=== PATIENT | male | born 1945 | race Caucasian/White ===

== ENCOUNTER → 2016-05-16 | Outpatient (CLI) | payer MEDICARE, OTHER ==
[~2016-05-16] MED LIST: ASP325T PO; BORAGE OIL; CLON0.5T3 PO; CLOP75TA PO; DIAZ-345 PO; FISH400C2 PO; FLAX100011 PO; FOLI0.8T PO; FOLIC ACID; GARLIC 1000MG PO; GLUCOSAMINE PO; IBUP-15 PO; MECL25TA56 PO; METO-272 PO; METO25TA2 PO; MTP50T PO; OMEG1CAP51 PO; RNT150T PO; SCP1.5TD TD; SIMV80TA3 PO; TRAM50TA2 PO; TRIA1TAB2 PO; ZINC50TA49 PO
--- OUTSIDE RECORDS SUMMARY | 2016-05-16 16:03 | XMS REPORT | Continuity of Care Document ---
Author Author [facility] Organization [facility] Address Unknown Phone Unavailable Care Team Providers Care Powder Coater Name Role Phone PCP Unavailable Source Comments Some departments are not documenting in the electronic medical record. If you do not see the information that you expected, contact Release of Information in the Health Information Management department at [phone] for further assistance in locating additional records.[facility] Active Allergies and Adverse Reactions Allergen Noted Date Severity Reactions Comments Codeine 09/12/2011 NAUSEA AND VOMITING Current Medications Prescription Sig. Disp. Refills Start End Date Status Date clopidogrel (PLAVIX) 75 Take 75 mg by mouth Active mg daily. metoprolol (LOPRESSOR) 25 Take 25 mg by mouth Active mg tablet daily. simvastatin (ZOCOR) 40 mg Take 80 mg by mouth at Active tablet bedtime daily. ranitidine(+) (ZANTAC) Take 150 mg by mouth Active 150 mg tablet twice daily. aspirin 325 mg tablet Take 162 mg by mouth Active daily. folic acid 400 mcg tablet Take 400 mcg by mouth Active daily. MULTIVITAMIN PO Take by mouth daily. Active FAMOTIDINE (PEPCID AC PO) Take 2 Tabs by mouth Active daily. calcium combo Take by mouth daily. Active no.2-vitamin D3 (CITRACAL + D SLOW RELEASE) 600 mg calcium- 500 unit TbER magnesium chloride (MAG Take 250 mg by mouth Active DELAY) 64 mg tablet daily. clonazePAM (KLONOPIN) 0.5 Take 1 Tab by mouth 30 Tab 0 12/06/19 Active mg tablet daily. AT BEDTIME 13 diazepam (VALIUM) 10 mg Take 10 mg by mouth at Active tablet bedtime as needed. tamsulosin (FLOMAX) 0.4 Take 0.4 mg by mouth Active mg capsule daily. oxyCODONE SR (OXYCONTIN) Take 20 mg by mouth daily Active 20 mg tablet oxyCODONE (ROXICODONE) 5 Take 5 mg by mouth every Active mg tablet 6 hours as needed gabapentin (NEURONTIN) Take 400 mg by mouth Active 400 mg capsule three times daily. hyoscyamine (LEVSIN/SL) Take 125 mcg by mouth Active 0.125 mg tablet every 4 hours as needed. DULoxetine DR (CYMBALTA) Take 30 mg by mouth at Active 30 mg capsule bedtime daily. zinc sulfate 220 mg (50 Take 220 mg by mouth Active mg elemental zinc) daily. capsule ERGOCALCIFEROL (VITAMIN Take 2,000 mg by mouth Active D2) (VITAMIN D PO) daily. docusate (COLACE) 100 mg Take 100 mg by mouth Active capsule twice daily as needed. polyethylene glycol 3350 Take 17 g by mouth daily. Active (GLYCOLAX; MIRALAX) 17 gram/dose powder milk of magnesia (CONC) Take 10 mL by mouth daily Active 2,400 mg/10 mL oral as needed. suspension other medication Insert or Apply 1 Dose to Active rectal area as directed twice daily as needed. baclofen (LIORESAL) 20 mg Insert or Apply 20 mg to Active tablet rectal area as directed twice daily as needed. other medication Insert or Apply 1 Dose to Active rectal area as directed twice daily as needed. nortriptyline (PAMELOR) TAKE ONE CAPSULE BY MOUTH 30 Cap 0 04/01/20 Active 25 mg capsule AT BEDTIME 14 Active Problems Problem Noted Date Rectal pain, chronic 10/21/2013 Vertigo 09/12/2011 Social History Tobacco Use Types Packs/Day Years Used Date Never Smoker Smokeless Tobacco: Never Used Alcohol Use Drinks/Week oz/Week Comments No Last Filed Vital Signs Vital Sign Reading Time Taken Blood Pressure 106/66 10/21/2013 2:19 PM CDT Pulse 78 10/21/2013 2:19 PM CDT Temperature 35.9 C (96.7 F) 10/21/2013 2:19 PM CDT Respiratory Rate 16 10/21/2013 2:19 PM CDT Height 1.727 m (5' 8") 10/21/2013 2:19 PM CDT Weight 79.516 kg (175 lb 4.8 oz) 10/21/2013 2:19 PM CDT Body Mass Index 26.66 10/21/2013 2:19 PM CDT Oxygen Saturation - - Plan of Care Health Maintenance Due Date Last Done Comments Physical (Comprehensive) 09/25/1952 Exam Pertussis Vaccine 09/25/1955 Tetanus Vaccine 1961 Colorectal Cancer 1994 Screening Shingles Vaccine 2004 Prevnar/Pneumovax (#1) 2009 Influenza Vaccine 12/22/2015 Results from Last 3 Months Not on file
--- NOTE | 2016-05-16 16:16 | Diagnostic Imaging Report ---
Indication: Chest pain PA and lateral chest There some atelectasis at the right lung base. Left lung is clear. There are no pneumothoraces. There may be tiny right-sided pleural effusion. Impression: Right basilar atelectasis and small right pleural effusion. Dictated by: Dictated on workstation # [id number]
== END ==
LOC: RAD 15:59
PROVIDERS: ATTEND Internal Medicine
DX: J90 Pleural effusion, not elsewhere classified (principal); J98.11 Atelectasis
CPT/HCPCS: 71020

== ENCOUNTER → 2016-05-17 | Outpatient (CLI) | payer MEDICARE, OTHER ==
[~2016-05-17] MED LIST changes: +CATHETER FLUSH 10 ML SYR IV PRN; +IOHEXOL 350 MG/ML 100 ML (OMNIPAQUE 350) VIAL IV ONE; +NS 100 ML (IVPB) BAG IV ONE
--- OUTSIDE RECORDS SUMMARY | 2016-05-17 09:30 | XMS REPORT | Continuity of Care Document ---
Author Author [facility] Organization [facility] Address Unknown Phone Unavailable Care Team Providers Care Plumber Cub Name Role Phone PCP Unavailable Source Comments Some departments are not documenting in the electronic medical record. If you do not see the information that you expected, contact Release of Information in the Health Information Management department at [phone] for further assistance in locating additional records.[facility] Active Allergies and Adverse Reactions Allergen Noted [...]
--- NOTE | 2016-05-17 11:47 | Diagnostic Imaging Report ---
PROCEDURE: CT chest with contrast only. TECHNIQUE: Multiple contiguous axial images were obtained through the chest after administration of intravenous contrast. INDICATION: Cough. FINDINGS: There are no prior CT chest examinations available for comparison. The plain film examination of the chest performed on 05/16/2016 indicated right basilar atelectasis and small right pleural effusion. On this exam, there is again evidence of pneumonia/atelectasis and a small effusion involving the right lung base. The effusion measures only 9 mm in maximum depth. Furthermore, there also appear to be small defects in the pulmonary arteries to the right lower lobe. This appearance would be consistent with pulmonary emboli. The right upper lung and left lung are generally clear. There is a very small amount of atelectasis/infiltrate in the left lung base. There are also a few mediastinal and right hilar nodes. The largest of these nodes is in the right infrahilar region and measures 1.2 x 1.8 cm. I suspect that these are reactive nodes related to the pneumonia/atelectasis and fluid involving the right lung base. The heart size is borderline enlarged, and there do appear to be coronary artery calcifications. The aorta is not abnormally dilated, and there is no sign of a dissection. The thyroid gland is unremarkable. The sections through the upper abdomen fail to show any sign of an acute abnormality. The liver is of lower density than usually seen. This appearance does suggest fatty metamorphosis. The bone windows show no sign of a fracture or of a destructive lesion. IMPRESSION: 1. As suggested on the plain film exam, there is right lower lobe pneumonia/atelectasis and a small right pleural effusion. Furthermore, there do appear to be pulmonary emboli in the branches of the pulmonary artery to the right lung base. 2. There is also mild left lower lobe atelectasis/infiltrate. There is no acute cardiopulmonary abnormality noted otherwise. 3. The right hilar and mediastinal adenopathy is nonspecific but most likely reactive in nature. 4. There is borderline cardiomegaly and coronary artery disease. 5. These results were called to Dr. Seema Collins's office at the time of this dictation. CRITICAL FINDING Dictated by: Dictated on workstation # [id number]
== END ==
LOC: RAD 09:27
PROVIDERS: ATTEND Internal Medicine
DX: I25.10 Atherosclerotic heart disease of native coronary artery without angina pectoris (principal); J90 Pleural effusion, not elsewhere classified; I51.7 Cardiomegaly
CPT/HCPCS: 71260

== ENCOUNTER → 2016-08-13 | Outpatient (CLI) | payer MEDICARE, OTHER ==
[2016-08-13 10:46] LABS: BLOOD UREA NITROGEN 16 MG/DL (7-18); BUN/CREATININE RATIO 18; CREATININE SERUM 0.88 MG/DL (0.60-1.30); GFR ESTIMATED > 60
--- NOTE | 2016-08-13 11:45 | Diagnostic Imaging Report ---
PROCEDURE: CT chest with contrast only. TECHNIQUE: Multiple contiguous axial images were obtained through the chest after administration of intravenous contrast. INDICATION: Pneumonia. Pleural effusion. CONTRAST: 75 mL of Omnipaque 350 was administered intravenously. COMPARISON: 05/17/2016. FINDINGS: There is interval near complete resolution of right lower lobe consolidation with remaining minimal atelectasis or scarring. There is also resolution of the previously seen effusion. There is no remaining suspicious nodule or mass. The left lung demonstrates no significant consolidation or mass. The mediastinum demonstrates no mass or significantly enlarged lymph node. There are some calcified granulomas in the mediastinum without significant lymphadenopathy in the mediastinum, ashwin, or axilla seen otherwise. The heart size is normal. The osseous structures demonstrate mild degenerative changes and bridging syndesmophytes. IMPRESSION: Near-complete resolution of the right basilar consolidation and effusion with minimal remaining atelectasis or scarring. Dictated by: Dictated on workstation # [id number]
== END ==
LOC: RAD 10:04
PROVIDERS: ATTEND Internal Medicine Critical Care Medicine
DX: J18.9 Pneumonia, unspecified organism (principal); J90 Pleural effusion, not elsewhere classified; I26.99 Other pulmonary embolism without acute cor pulmonale
CPT/HCPCS: 36415; 71260; 82565; 84520

== ENCOUNTER → 2017-09-30 | Outpatient (CLI) | payer MEDICARE, OTHER ==
[~2017-09-30] MED LIST changes: -CATHETER FLUSH 10 ML SYR IV PRN; -IOHEXOL 350 MG/ML 100 ML (OMNIPAQUE 350) VIAL IV ONE; -NS 100 ML (IVPB) BAG IV ONE
--- NOTE | 2017-09-30 12:40 | Diagnostic Imaging Report ---
INDICATION: Pneumonia. COMPARISON: 05/16/2016. FINDINGS: There has been resolution of the right pleural fluid. Some mild nodular opacity in the right lower lobe is present although less dense than on the prior exam. I am uncertain if there has been a recurrence of pneumonia or if the changes reflect scarring from a previous inflammatory episode. The left lung is clear. The upper lobe is clear. IMPRESSION: There is some mild nodular prominence of the interstitial markings in the right lung base which may be recurrence of infiltrate or scarring. Overall, the findings in the right base show an improvement from the study of April 2016 and include complete resolution of a previous pleural effusion. Dictated by: Dictated on workstation # [id number]
== END ==
LOC: RAD 12:09
PROVIDERS: ATTEND Nurse Practitioner Family
DX: J18.9 Pneumonia, unspecified organism (principal)
CPT/HCPCS: 71046

== ENCOUNTER → 2018-02-27 | Outpatient (CLI) | payer MEDICARE, OTHER ==
--- NOTE | 2018-02-27 14:24 | Diagnostic Imaging Report ---
PROCEDURE: MR imaging cervical spine without contrast. TECHNIQUE: Multiplanar, multisequence MR imaging of the cervical spine was performed without contrast. INDICATION: Chronic neck pain. COMPARISON: No prior studies are available for comparison. FINDINGS: Curvature of the cervical spine is normal. There is minimal retrolisthesis of C5 on C6 and C6 on C7. The vertebral body marrow signal is within normal limits with exception of reactive changes in the marrow from degenerative disc disease within the C5 and C6 vertebral bodies. There is multilevel degenerative disc disease, greatest at C5-6 and C6-7 levels, with disc space narrowing and desiccation and marginal osteophyte formation. Cervical cord shows normal homogeneous signal intensity and normal morphology. C2-3: No central canal or neural foraminal stenosis is identified. C3-4: No significant central canal narrowing is identified. Uncovertebral joint degenerative changes does result in mild bilateral neural foraminal narrowing. C4-5: Central canal is patent. There is moderate left neural foraminal narrowing. Right neural foramen is patent. C5-6: Broad-based disc/osteophyte complex indents the ventral thecal sac. There is mild to moderate central canal narrowing. There is significant bilateral neural foraminal narrowing. C6-7: Broad-based disc/osteophyte complex and uncovertebral joint degenerative change results in moderate central canal narrowing. There is significant bilateral neural foraminal stenosis. C7-T1: No central canal or neural foraminal stenosis is identified. IMPRESSION: Cervical spondylosis, greatest at C5-6 and C6-7 levels with central canal and neural foraminal narrowing, as described. Dictated by: Dictated on workstation # [id number]
== END ==
LOC: RAD 13:13
PROVIDERS: ATTEND Pain Medicine Interventional Pain Medicine
DX: M47.22 Other spondylosis with radiculopathy, cervical region (principal); M48.02 Spinal stenosis, cervical region; M99.71 Connective tissue and disc stenosis of intervertebral foramina of cervical region
CPT/HCPCS: 72141

== ENCOUNTER → 2018-03-07 | Outpatient (CLI) | payer MEDICARE, OTHER ==
--- NOTE | 2018-03-07 10:23 | Diagnostic Imaging Report ---
INDICATION: Pneumonia. TIME OF EXAM: 10:09 AM COMPARISON: Correlation is made with prior study from 09/30/2017. FINDINGS: The heart size is stable. There is chronic mild elevation of right hemidiaphragm. No significant infiltrates are seen apart from questionable minimal patchy density in the left base near the costophrenic angle. The remainder of the lung calderón are clear. The pulmonary vascularity is normal. No effusion is identified. No pneumothorax is detected. IMPRESSION: Findings suggestive of some mild patchy left basilar infiltrate. The study is otherwise unremarkable. Dictated by: Dictated on workstation # [id number]
== END ==
LOC: RAD 09:34
PROVIDERS: ATTEND Nurse Practitioner Family
DX: J18.9 Pneumonia, unspecified organism (principal)
CPT/HCPCS: 71046

== ENCOUNTER → 2018-07-18 | Outpatient (CLI) | payer MEDICARE, OTHER ==
--- NOTE | 2018-07-18 12:03 | Diagnostic Imaging Report ---
PROCEDURE: US abdomen complete. TECHNIQUE: Multiple real-time grayscale images were obtained over the abdomen in various projections. INDICATION: Abdominal pain. FINDINGS: The liver is normal in size at 14.4 cm. No discrete liver mass is identified. Left lobe is poorly visualized due to overlying bowel gas. No definite gallstones are seen. No wall thickening or biliary ductal dilatation is seen. Pancreas was obscured by bowel gas. Spleen is normal in size at 10.4 cm. Aorta and IVC were obscured by bowel gas. Right kidney measures 10.1 x 4.9 x 4.6 cm and the left kidney measures 11.9 x 5.6 x 5.0 cm. There are bilateral renal cysts present. Largest cyst on the right is in the upper pole measuring 3.6 x 3.1 cm. Cyst in the upper pole of the left kidney is 4.2 cm x 3.6 cm. No calculi or hydronephrosis is identified. There is no ascites. IMPRESSION: 1. Somewhat Limited study due to overlying bowel gas. No definite cholelithiasis or evidence of acute cholecystitis is seen. 2. Bilateral renal cysts. Dictated by: Dictated on workstation # [id number]
== END ==
LOC: RAD 10:11
PROVIDERS: ATTEND Internal Medicine Gastroenterology
DX: N28.1 Cyst of kidney, acquired (principal)
CPT/HCPCS: 76700

== ENCOUNTER 2018-08-06 14:09 | Outpatient (CLI) | payer MEDICARE, OTHER | END 2018-08-06 15:30 | disposition home or self-care (01) | LOC: SLEEP 14:09 | PROVIDERS: ATTEND Otolaryngology Otolaryngology/Facial Plastic Surgery | DX: G47.33 Obstructive sleep apnea (adult) (pediatric) (principal) ==

== ENCOUNTER → 2018-10-31 | Outpatient (RCR) | payer MEDICARE, OTHER | END | disposition home or self-care (01) | LOC: CR3 10-01 15:31 | PROVIDERS: ATTEND Family Medicine | DX: Z29.8 Encounter for other specified prophylactic measures (principal) ==

== ENCOUNTER → 2018-12-03 | Outpatient (RCR) | payer MEDICARE, OTHER | END | disposition home or self-care (01) | LOC: CR3 11-03 16:44 | PROVIDERS: ATTEND Family Medicine | DX: Z29.8 Encounter for other specified prophylactic measures (principal) ==

== ENCOUNTER 2019-01-01 06:00 | Outpatient (RCR) | payer MEDICARE, OTHER | END 2019-01-04 | disposition home or self-care (01) | LOC: CR3 06:00 | PROVIDERS: ATTEND Family Medicine | DX: Z29.8 Encounter for other specified prophylactic measures (principal) ==

== ENCOUNTER → 2019-01-29 | Outpatient (CLI) | payer MEDICARE, OTHER ==
--- NOTE | 2019-01-29 14:59 | Diagnostic Imaging Report ---
PROCEDURE: US carotid duplex, bilateral. TECHNIQUE: Multiple real-time grayscale images were obtained over the carotid arteries in various projections, bilaterally. Additional spectral analysis and color Doppler duplex images were also obtained. INDICATION: Carotid stenosis. COMPARISON: There are no prior studies available for comparison. FINDINGS: There is mild hard and soft plaque formation involving both carotid bifurcations. The flow velocities failed to show any sign of a hemodynamically significant stenosis of the common or internal carotid arteries. Both vertebral arteries were identified and there was antegrade flow bilaterally. IMPRESSION: There is atherosclerotic disease involving both carotid bifurcations, but there is no evidence for hemodynamically significant stenosis of the common or internal carotid arteries. Parameters based on the consensus panel [place] and Doppler ultrasound criteria published February 2003, Radiology, Volume 229. DOPPLER (peak systolic velocity M/S Right Left CCA .87 1.00 ICA Proximal .77 .75 ICA Mid .96 1.08 ICA Distal 1.19 1.00 RATIO 1.4 1.1 ECA 1.27 1.08 VERT .15 .57 Dictated by: Dictated on workstation # [id number]
== END ==
LOC: RAD 13:34
PROVIDERS: ATTEND Nurse Practitioner Family
DX: I65.23 Occlusion and stenosis of bilateral carotid arteries (principal)
CPT/HCPCS: 93880

== ENCOUNTER → 2019-02-06 | Outpatient (RCR) | payer MEDICARE, OTHER | END | disposition home or self-care (01) | LOC: CR3 01-07 15:00 | PROVIDERS: ATTEND Family Medicine | DX: Z29.8 Encounter for other specified prophylactic measures (principal) ==

== ENCOUNTER → 2019-03-11 | Outpatient (RCR) | payer MEDICARE, OTHER | END | disposition home or self-care (01) | LOC: CR3 02-09 16:00 | PROVIDERS: ATTEND Family Medicine | DX: Z29.8 Encounter for other specified prophylactic measures (principal) ==

== ENCOUNTER 2019-04-08 14:55 | Outpatient (RCR) | payer MEDICARE, OTHER ==
[2019-04-11] MEDS ORDERED: PROC5TAB52 PO (13:39)
[2019-04-11] MEDS ORDERED: ONDA4TAB11 PO (13:39)
[2019-04-11] MEDS ORDERED: SUCR1TAB36 PO (13:39)
== END 2019-04-11 | disposition home or self-care (01) ==
LOC: CR3 14:55
PROVIDERS: ATTEND Family Medicine
DX: Z29.8 Encounter for other specified prophylactic measures (principal)

== ENCOUNTER 2019-04-11 12:43 | Emergency (ER) | payer MEDICARE, OTHER ==
[~2019-04-11] VITALS: Ht 175.3 cm; Wt 81.8 kg
--- NOTE | 2019-04-11 12:56 | ED Abdominal Pain ---
General Chief Complaint: Abdominal/GI Problems Stated Complaint: ABD PAIN Source of Information: Patient Exam Limitations: No Limitations History of Present Illness Date Seen by Provider: Apr 11, 2019 Time Seen by Provider: 12:54 Initial Comments To ER by with nausea vomiting diarrhea. He's had a weight loss of about 15 pounds over the past 2 weeks. He's had some epigastric pain, burning sensation anytime he eats or drinks. History of stomach ulcer and believes this is a recurrence of the stomach ulcer despite Protonix use. 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 states he is "always had a weak stomach". Timing/Duration: Constant, Getting Worse Severity/Quality: Moderate Location: Epigastric Radiation: No Radiation Modifying Factors: Improves With Vomiting Associated Symptoms: Nausea/Vomiting Allergies and Home Medications Allergies Coded Allergies: tramadol (Verified Allergy, Mild, 08/07/11) codeine (Unverified Allergy, Unknown, 08/08/11) Home Medications Aspirin 325 Mg Tab, 325 MG PO HS, (Reported) Clonazepam 0.5 Mg Tablet, 0.25-0.5 MG PO HS, (Reported) TAKES 1/2 TO 1 (0.5MG) TABLET AT BEDTIME Clopidogrel Bisulfate 75 Mg Tablet, 75 MG PO HS, (Reported) Fish Oil/Borage/Flax/Om3,6,9#1 400 Mg Capsule, 1 CAP PO BID, (Reported) Folic Acid 0.8 Mg Tablet, 1,600 MCG PO HS, (Reported) Ibuprofen 200 Mg Tablet, 800 MG PO HS, (Reported) TAKES 2 (200MG) TABLETS AT BEDTIME Meclizine Hcl 25 Mg Tablet, 25 MG PO TID PRN, (Reported) NEEDED FOR VERTIGO Metoprolol Tartrate 50 Mg Tablet, 25 MG PO BID, (Reported) TAKES 1/2 (50MG) TABLET TWICE DAILY Ondansetron 4 Mg Tab.rapdis, 4 MG PO Q6H PRN for NAUSEA/VOMITING-1ST LINE Prescribed by: LEE ADAMS on 04/11/19 1339 Prochlorperazine Maleate 5 Mg Tablet, 5 MG PO TID PRN for NAUSEA/VOMITING Prescribed by: LEE ADAMS on 04/11/19 1339 Ranitidine Hcl 150 Mg Tablet, 150 MG PO HS, (Reported) Simvastatin 80 Mg Tablet, 80 MG PO HS, (Reported) Sucralfate 1 Gm Tablet, 1 GM PO QID Prescribed by: LEE ADAMS on 04/11/19 1339 Tramadol Hcl 50 Mg Tablet, 25 MG PO HS, (Reported) TAKES 1/2 (50MG) TABLET EVERY NIGHT Zinc Amino Acid Chelate 50 Mg Tablet, 50 MG PO HS, (Reported) [Garlic 1000MG] , 1,000 MG PO HS, (Reported) [Glucosamine] , 2,000 MG PO BID, (Reported) Patient Home Medication List Home Medication List Reviewed: Yes Review of Systems Review of Systems Constitutional: see HPI EENTM: No Symptoms Reported Respiratory: No Symptoms Reported Cardiovascular: No Symptoms Reported Gastrointestinal: See HPI, Abdominal Pain, Diarrhea, Nausea, Vomiting Genitourinary: No Symptoms Reported Musculoskeletal: no symptoms reported Skin: no symptoms reported Psychiatric/Neurological: No Symptoms Reported Endocrine: No Symptoms Reported Hematologic/Lymphatic: No Symptoms Reported Past Mbaglhf-Qrtdtt-Feklip Hx Patient Social History Recent Foreign Travel: No Contact w/Someone Who Travel: No Immunizations Up To Date Date of Influenza Vaccine: Jan 20, 2011 Past Medical History Reproductive Disorders: No Physical Exam Vital Signs Vital Signs - First Documented 04/11/19 12:46 Temp 36.9 Pulse 67 Resp 17 B/P (MAP) 141/99 (113) Pulse Ox 98 O2 Delivery Room Air Capillary Refill : Height/Weight/BMI Height: '" Weight: 165lbs. oz. kg; BMI Method: General Appearance: WD/WN, no apparent distress HEENT: PERRL/EOMI, normal ENT inspection Neck: non-tender, full range of motion Respiratory: no respiratory distress, no accessory muscle use Gastrointestinal: normal bowel sounds, soft, tenderness (epigastric) Extremities: normal range of motion, non-tender Neurologic/Psychiatric: alert, normal mood/affect, oriented x 3 Skin: normal color, warm/dry Progress/Results/Core Measures Results/Orders Lab Results Laboratory Tests Test 04/11/19 12:54 Range/Units White Blood Count 9.5 4.3-11.0 10^3/uL Red Blood Count 5.24 4.35-5.85 10^6/uL Hemoglobin 16.4 13.3-17.7 G/DL Hematocrit 48 40-54 % Mean Corpuscular Volume 92 80-99 FL Mean Corpuscular Hemoglobin 31 25-34 PG Mean Corpuscular Hemoglobin Concent 34 32-36 G/DL Red Cell Distribution Width 13.2 10.0-14.5 % Platelet Count 255 130-400 10^3/uL Mean Platelet Volume 10.6 H 7.4-10.4 FL Neutrophils (%) (Auto) 76 H 42-75 % Lymphocytes (%) (Auto) 16 12-44 % Monocytes (%) (Auto) 8 0-12 % Eosinophils (%) (Auto) 0 0-10 % Basophils (%) (Auto) 0 0-10 % Neutrophils # (Auto) 7.2 1.8-7.8 X 10^3 Lymphocytes # (Auto) 1.5 1.0-4.0 X 10^3 Monocytes # (Auto) 0.8 0.0-1.0 X 10^3 Eosinophils # (Auto) 0.0 0.0-0.3 10^3/uL Basophils # (Auto) 0.0 0.0-0.1 10^3/uL Sodium Level 139 135-145 MMOL/L Potassium Level 4.4 3.6-5.0 MMOL/L Chloride Level 104 98-107 MMOL/L Carbon Dioxide Level 22 21-32 MMOL/L Anion Gap 13 5-14 MMOL/L Blood Urea Nitrogen 15 7-18 MG/DL Creatinine 1.17 0.60-1.30 MG/DL Estimat Glomerular Filtration Rate > 60 BUN/Creatinine Ratio 13 Glucose Level 117 H 70-105 MG/DL Calcium Level 9.8 8.5-10.1 MG/DL Corrected Calcium 8.5-10.1 MG/DL Total Bilirubin 0.5 0.1-1.0 MG/DL Aspartate Amino Transf (AST/SGOT) 30 5-34 U/L Alanine Aminotransferase (ALT/SGPT) 24 0-55 U/L Alkaline Phosphatase 79 40-136 U/L Total Protein 8.1 6.4-8.2 GM/DL Albumin 4.7 H 3.2-4.5 GM/DL Lipase 9 8-78 U/L My Orders Orders - LEE ADAMS FUSING MACHINE FEEDER Cbc With Automated Diff (04/11/19 12:50) Comprehensive Metabolic Panel (04/11/19 12:50) Lipase (04/11/19 12:50) Ua Culture If Indicated (04/11/19 12:50) Ed Iv/Invasive Line Start (04/11/19 12:50) Ct Abdomen/Pelvis Wo (04/11/19 12:50) Antacid Suspension (Mylanta Suspension (04/11/19 13:00) Lidocaine 2% Viscous 15 Ml (Xylocaine Vi (04/11/19 13:00) Ondansetron Injection (Zofran Injectio (04/11/19 13:00) Lactated Ringers (Lr 1000 Ml Iv Solution (04/11/19 13:00) Fentanyl Injection (Sublimaze Injection (04/11/19 13:30) Prochlorperazine Injection (Compazine In (04/11/19 13:45) Medications Given in ED Current Medications Medications Dose Ordered Sig/Eliecer Route Start Time Stop Time Status Last Admin Dose Admin Al Hydrox/Mg Hydrox/Simethicone 30 ml ONCE ONCE PO 04/11/19 13:00 04/11/19 13:01 DC 04/11/19 14:06 30 ML Fentanyl Citrate 50 mcg ONCE ONCE IVP 04/11/19 13:30 04/11/19 13:31 DC 04/11/19 13:38 50 MCG Lidocaine HCl 10 ml ONCE ONCE PO 04/11/19 13:00 04/11/19 13:01 DC 04/11/19 14:06 10 ML Ondansetron HCl 8 mg ONCE ONCE IVP 04/11/19 13:00 04/11/19 13:01 DC 04/11/19 12:56 8 MG Prochlorperazine Edisylate 5 mg ONCE ONCE IV 04/11/19 13:45 04/11/19 13:46 DC 04/11/19 13:46 5 MG Vital Signs/I&O 04/11/19 12:46 Temp 36.9 Pulse 67 Resp 17 B/P (MAP) 141/99 (113) Pulse Ox 98 O2 Delivery Room Air Departure Impression Primary Impression: Nausea, vomiting and diarrhea Additional Impression: Epigastric abdominal pain Disposition: 01 HOME, SELF-CARE Condition: Improved Departure-Patient Inst. Decision time for Depature: 13:37 Referrals: RONALDO SRIVASTAVA MD (PCP/Family) Primary Care Physician LORENA LÓPEZ BRETT D DO KIDO, TAKAAKI MD Patient Instructions: Nausea and Vomiting, Adult (DC) Add. Discharge Instructions: 1. Follow-up with Dr. Srivastava, she may refer you to a surgeon. Alternatively you may call a surgeon directly such as Dr. Ken López or Dr. Floyd to discuss EGD to evaluate for stomach ulcers. In the meantime medication as directed. All discharge instructions reviewed with patient and/or family. Voiced understanding. Scripts Ondansetron (Ondansetron Odt) 4 Mg Tab.rapdis 4 MG PO Q6H PRN for NAUSEA/VOMITING-1ST LINE, #10 TAB Prov: LEE ADAMS APRN 04/11/19 Prochlorperazine Maleate (Compazine) 5 Mg Tablet 5 MG PO TID PRN for NAUSEA/VOMITING, #10 TAB Prov: LEE ADAMS APRN 04/11/19 Sucralfate (Carafate) 1 Gm Tablet 1 GM PO QID, #40 TAB Prov: LEE ADAMS APRN 04/11/19 Copy Copies To 1: RONALDO SRIVASTAVA MD, PETER J APRN Apr 11, 2019 12:56
[2019-04-11] MEDS ORDERED: ANTACID SUSP 30 ML UDC (MYLANTA) PO ONE (13:00)
[2019-04-11] MEDS ORDERED: LIDOCAINE 2% VISCOUS 15 ML UDC PO ONE (13:00)
[2019-04-11] MEDS ORDERED: ONDANSETRON 4 MG/2 ML (SDV) Z0FRAN IVP ONE (13:00)
[2019-04-11] MEDS ORDERED: LACTATED RINGERS 1,000 ML IV SCH (13:00)
[2019-04-11 13:03] LABS: BASOPHILS % (AUTO) 0 % (0-10); EOSINOPHILS % (AUTO) 0 % (0-10); HEMATOCRIT 48 % (40-54); HEMOGLOBIN 16.4 G/DL (13.3-17.7); LYMPHOCYTES # (AUTO) 1.5 X 10^3 (1.0-4.0); LYMPHOCYTES % (AUTO) 16 % (12-44); MEAN CORPUSCULAR HEMOGLOBIN 31 PG (25-34); MEAN CORPUSCULAR HGB CONC 34 G/DL (32-36); MEAN CORPUSCULAR VOLUME 92 FL (80-99); MEAN PLATELET VOLUME 10.6 FL (7.4-10.4); MONOCYTES # (AUTO) 0.8 X 10^3 (0.0-1.0); MONOCYTES % (AUTO) 8 % (0-12); NEUTROPHILS # (AUTO) 7.2 X 10^3 (1.8-7.8); NEUTROPHILS % (AUTO) 76 % (42-75); PLATELET COUNT 255 10^3/uL (130-400); RED CELL DISTRIBUTION WIDTH 13.2 % (10.0-14.5); WHITE BLOOD COUNT 9.5 10^3/uL (4.3-11.0)
[2019-04-11 13:22] LABS: ALANINE AMINOTRANSFERASE 24 U/L (0-55); ALBUMIN 4.7 GM/DL (3.2-4.5); ALKALINE PHOSPHATASE 79 U/L (40-136); BILIRUBIN,TOTAL 0.5 MG/DL (0.1-1.0); BUN/CREATININE RATIO 13; CALCIUM 9.8 MG/DL (8.5-10.1); CARBON DIOXIDE 22 MMOL/L (21-32); CHLORIDE 104 MMOL/L (98-107); CREATININE SERUM 1.17 MG/DL (0.60-1.30); GFR ESTIMATED > 60; GLUCOSE 117 MG/DL (70-105); LIPASE 9 U/L (8-78); POTASSIUM 4.4 MMOL/L (3.6-5.0); SODIUM 139 MMOL/L (135-145); TOTAL PROTEIN 8.1 GM/DL (6.4-8.2)
[2019-04-11] MEDS ORDERED: fentaNYL INJECTION 100 MCG/2 ML AMP IVP ONE (13:30)
--- NOTE | 2019-04-11 13:34 | Diagnostic Imaging Report ---
EXAMINATION: CT Abdomen Pelvis without contrast. TECHNIQUE: Multiple contiguous axial images were obtained through the abdomen and pelvis without the use of intravenous contrast. All CT scans use one or more of the following dose optimizing techniques: automated exposure control, MA and/or KvP adjustment based on a patient size and exam type, or iterative reconstruction. HISTORY: Abdominal pain. COMPARISON: 02/13/2012 FINDINGS: Limited views of the lower thorax show moderate coronary artery calcifications. The liver is normal without focal lesion. There is no biliary ductal dilation. Gallbladder is normal. Pancreas is normal. Spleen is normal. Adrenal glands are normal. There are multiple cysts in the kidneys. No suspicious renal lesions. No renal or ureteral calculi. There is no hydronephrosis. Urinary bladder is normal. There are no dilated loops of large or small bowel. No obstruction or inflammation. No free fluid or air. No abdominal or pelvic lymphadenopathy. Aorta is normal in caliber without aneurysm. There are no suspicious osseous lesions. There has been instrumented fusion of the lumbar spine. IMPRESSION: 1. No acute abnormality in the abdomen or pelvis. Dictated by: Dictated on workstation # [id number]
[2019-04-11] MEDS ORDERED: ONDA4TAB11 PO (13:39)
[2019-04-11] MEDS ORDERED: PROC5TAB52 PO (13:39)
[2019-04-11] MEDS ORDERED: SUCR1TAB36 PO (13:39)
[2019-04-11] MEDS ORDERED: PROCHLORPERAZINE 10 MG/2ML INJ (COMPAZINE) IV ONE (13:45)
[2019-04-11 14:28] VITALS: BP 102/65
== END 2019-04-11 14:28 | disposition home or self-care (01) ==
LOC: EDUNIT# 12:43 → ER 12:44
DX: R19.7 Diarrhea, unspecified (principal); R11.2 Nausea with vomiting, unspecified; R10.13 Epigastric pain; Z88.5 Allergy status to narcotic agent; Z79.82 Long term (current) use of aspirin; Z79.02 Long term (current) use of antithrombotics/antiplatelets
CPT/HCPCS: 36415; 74176; 80053; 83690; 85025; 96361; 96374; 96375

== ENCOUNTER 2019-05-29 16:44 | Outpatient (RCR) | payer MEDICARE, OTHER ==
[~2019-05-29 16:44] MED LIST changes: +ONDA4TAB11 PO; +PROC5TAB52 PO; +SUCR1TAB36 PO
== END 2019-05-31 | disposition home or self-care (01) ==
LOC: CR3 16:44
PROVIDERS: ATTEND Family Medicine
DX: Z29.8 Encounter for other specified prophylactic measures (principal)

== ENCOUNTER → 2019-07-01 | Outpatient (RCR) | payer MEDICARE, OTHER | END | disposition home or self-care (01) | LOC: CR3 06-01 14:00 | PROVIDERS: ATTEND Family Medicine | DX: Z29.8 Encounter for other specified prophylactic measures (principal) ==

== ENCOUNTER 2019-07-03 17:00 | Outpatient (RCR) | payer MEDICARE, OTHER | END 2019-08-02 | disposition home or self-care (01) | LOC: CR3 17:00 | PROVIDERS: ATTEND Family Medicine | DX: Z29.8 Encounter for other specified prophylactic measures (principal) ==

== ENCOUNTER → 2019-08-06 | Outpatient (CLI) | payer MEDICARE, OTHER | LOC: PREOP 09:01 | PROVIDERS: ATTEND Surgery | DX: Z01.818 Encounter for other preprocedural examination (principal) ==

== ENCOUNTER → 2019-11-12 | Outpatient (CLI) | payer MEDICARE, OTHER ==
[~2019-11-12] MED LIST changes: +ALPR0.5T7 PO; +ASPI-983 PO; +ATEN25TA PO; +ATOR80TA76 PO; +CALC-870 PO; +CLOP75TA69 PO; +DOCU250C18 PO; +DOXY100T2 PO; +FOLI0.4T2 PO; +GABA-490 PO; +LISI-556 PO; +MAGN500C15 PO; +NITR0.4T42 SL; +ONDA-105 PO; +OXYC20TA3 PO; +PANT40TA2 PO; +PANT40TA3 PO; +POLY17PO6 PO; +SIMV80TA21 PO; +SUCR1TAB PO; +TICA90TA PO; +TMSL.4C PO; +VENL75CA93 PO
--- NOTE | 2019-11-12 17:51 | Diagnostic Imaging Report ---
EXAMINATION: Cervical spine at 05:01 p.m. INDICATION: Neck pain. FINDINGS: AP, lateral, and odontoid views were obtained. The lateral view shows degenerative disc and bony disease at C6-C7 and to a lesser extent at C5-C6. These degenerative changes are similar to the MRI cervical spine exam of 02/27/2018. That study revealed central canal and neuroforaminal narrowing at the C5-C6 and C6-C7 levels. The other intervertebral disc spaces are fairly well maintained. There is no fracture or acute bony abnormality evident. There is no sign of retropharyngeal edema. The lung apices are clear. IMPRESSION: 1. There is no evidence for an acute bony abnormality. 2. There is degenerative disc and bony disease at C5-C6 and C6-C7. These findings are similar to the prior MRI exam. 3. If there is clinical concern that the degenerative disc and bony disease at the C5-C6 and C6-C7 levels has progressed since the prior study, then a repeat MRI exam would be recommended. Dictated by: Dictated on workstation # [id number]
--- NOTE | 2019-11-12 18:38 | Diagnostic Imaging Report ---
EXAM: Thoracic spine at 5:09 PM INDICATION: Back pain. 4 views were obtained. The lateral view shows degenerative disc and bony disease throughout the thoracic spine. This appearance is similar to the prior chest exam of 03/07/2018. There is no fracture, dislocation or acute bony abnormality evident. There is no sign of a paraspinal mass. IMPRESSION: 1. There is degenerative disc and bony disease throughout the thoracic spine but there is no evidence of acute bony abnormality. 2. If clinical concern regarding an underlying abnormality persists, MRI would be recommended for further evaluation. Dictated by: Dictated on workstation # [id number]
--- NOTE | 2019-11-12 18:47 | Diagnostic Imaging Report ---
EXAM: Lumbar spine INDICATION: Back pain 3 views are obtained. COMPARISON: There are no prior lumbar spine examinations available for comparison. The lateral view shows there are postsurgical changes consistent with a posterior fusion of L3, L4 and L5. There are bilateral pedicle screws in place at these levels and an interconnecting alex at the L3 level. There has also been a broad laminectomy. There is narrowing of the disc spaces at all 3 of these levels, particularly L4-L5 and L5-S1. There is also severe narrowing of the disc space with sclerosis of the opposing endplates of L2 and L3. There is only mild narrowing of the disc space at L1-L2. There is no fracture or acute bony abnormality noted. There is no sign of a paraspinal mass. There is mild symmetrical sclerosis of the sacroiliac joint. IMPRESSION: 1. There is no evidence for an acute bony abnormality. 2. There are postsurgical and degenerative changes at L3-L4 and L4-L5. There is also severe degenerative disc and bony disease at the L2-L3 level. 3. If clinical concern regarding an underlying abnormality persists, MRI would be recommended for further study. Dictated by: Dictated on workstation # [id number]
== END ==
LOC: RAD 16:39
PROVIDERS: ATTEND Nurse Practitioner Family
DX: M51.36 Other intervertebral disc degeneration, lumbar region (principal); M47.816 Spondylosis without myelopathy or radiculopathy, lumbar region; M51.34 Other intervertebral disc degeneration, thoracic region; M50.322 Other cervical disc degeneration at C5-C6 level; M89.9 Disorder of bone, unspecified; Z98.1 Arthrodesis status
CPT/HCPCS: 72040; 72072; 72100

== ENCOUNTER 2019-12-23 13:00 | Outpatient (RCR) | payer MEDICARE, OTHER ==
[~2019-12-23 13:00] MED LIST changes: +ASPI-1238 PO; -ASPI-983 PO
== END 2019-12-29 | disposition home or self-care (01) ==
PROVIDERS: ATTEND Nurse Practitioner Family
DX: M54.42 Lumbago with sciatica, left side (principal)

== ENCOUNTER → 2019-12-31 | Outpatient (CLI) | payer MEDICARE, OTHER ==
--- NOTE | 2019-12-31 16:45 | Diagnostic Imaging Report ---
INDICATION: Difficulty breathing. COMPARISON: 08/22/2019 FINDINGS: Frontal and lateral radiographic views of the chest were obtained and show normal cardiac silhouette and pulmonary vasculature. The lungs show somewhat shallow inspiratory volumes, but there is no evidence of focal consolidation, large effusion, nor pneumothorax. There is bilobed opacity within the lateral left lung base. Central lucencies are noted. Area in question measures 2.8 x 1.1 cm. Osseous structures show no acute abnormalities. IMPRESSION: 1. No evidence of failure or focal infiltrate. 2. Bilobed opacity with central lucencies in the lateral left lung base. Given the well-circumscribed nature of this finding, this could be artifact related to something external to the patient. Repeating the chest radiograph versus further characterization with CT chest is recommended for further evaluation. Dictated by: Dictated on workstation # [id number]
== END ==
LOC: RAD 15:54
PROVIDERS: ATTEND Nurse Practitioner Family
DX: R06.02 Shortness of breath (principal); R91.8 Other nonspecific abnormal finding of lung field
CPT/HCPCS: 71046

== ENCOUNTER → 2020-01-25 | Outpatient (CLI) | payer MEDICARE, OTHER ==
[~2020-01-25] MED LIST changes: -PANT40TA3 PO; +PANT40TA52 PO
--- NOTE | 2020-01-25 16:48 | Diagnostic Imaging Report ---
INDICATION: Cough. Comparison made with prior examination 12/31/2019. FINDINGS: The heart size is normal. There is some elevation of the right hemidiaphragm. There is no pleural effusion or pneumothorax. Mediastinum is unremarkable. IMPRESSION: No acute cardiopulmonary abnormality. Dictated by: Dictated on workstation # [id number]
== END ==
LOC: RAD 15:52
PROVIDERS: ATTEND Nurse Practitioner Family
DX: R05 Cough (principal); Z20.828 Contact with and (suspected) exposure to other viral communicable diseases
CPT/HCPCS: 71046

== ENCOUNTER 2020-02-04 15:13 | Outpatient (RCR) | payer MEDICARE, OTHER | END 2020-02-04 16:12 | disposition home or self-care (01) | PROVIDERS: ATTEND Nurse Practitioner Family | DX: M54.42 Lumbago with sciatica, left side (principal); Z20.828 Contact with and (suspected) exposure to other viral communicable diseases ==

== ENCOUNTER 2020-08-16 12:56 | Outpatient (RCR) | payer MEDICARE, OTHER ==
[~2020-08-16 12:56] MED LIST changes: -FOLI0.4T2 PO; +FOLI0.4T6 PO; -LISI-556 PO; +LISI-729 PO
== END 2020-08-29 14:03 | disposition home or self-care (01) ==
PROVIDERS: ATTEND Family Medicine
DX: M54.2 Cervicalgia (principal)

== ENCOUNTER → 2020-10-13 | Outpatient (CLI) | payer MEDICARE, OTHER ==
--- NOTE | 2020-10-13 18:17 | Diagnostic Imaging Report ---
CLINICAL INDICATION: Patient with shortness of air. EXAM: Chest x-ray PA and lateral views. COMPARISONS: Chest x-ray dated 01/25/2020. FINDINGS: Interval postop changes to the chest consistent with CABG with sternotomy wires and mediastinal clips. Heart size within normal limits. Pulmonary vasculature is within normal limits. There is no interval lung infiltrate. There is no pleural effusion or pneumothorax. There are hypertrophic spurs involving the thoracic spine. IMPRESSION: 1: There is no evidence of acute cardiopulmonary process. 2: Interval postop changes to the chest consistent with CABG. Dictated by: Dictated on workstation # [id number]
== END ==
LOC: RAD 15:14
PROVIDERS: ATTEND Nurse Practitioner Family
DX: R06.02 Shortness of breath (principal); Z98.890 Other specified postprocedural states
CPT/HCPCS: 71046

== ENCOUNTER 2020-12-29 13:06 | Outpatient (RCR) | payer MEDICARE, OTHER ==
[~2020-12-29 13:06] MED LIST changes: -DOCU250C18 PO; +DOCU250C97 PO
== END 2021-01-18 09:30 | disposition home or self-care (01) ==
PROVIDERS: ATTEND Pain Medicine Interventional Pain Medicine
DX: M54.10 Radiculopathy, site unspecified (principal); Z98.1 Arthrodesis status

== ENCOUNTER → 2021-01-18 | Outpatient (RCR) | payer MEDICARE, OTHER | END | disposition home or self-care (01) | LOC: CR3 12-19 14:43 | PROVIDERS: ATTEND Family Medicine | DX: Z29.8 Encounter for other specified prophylactic measures (principal) ==

== ENCOUNTER 2021-02-17 15:11 | Outpatient (RCR) | payer MEDICARE, OTHER | END 2021-02-19 | LOC: CR3 15:11 | PROVIDERS: ATTEND Family Medicine | DX: Z29.8 Encounter for other specified prophylactic measures (principal) ==

== ENCOUNTER → 2021-03-22 | Outpatient (RCR) | payer MEDICARE, OTHER ==
[~2021-03-22] MED LIST changes: -LISI-729 PO; +LISI5TAB20 PO
== END | disposition home or self-care (01) ==
LOC: CR3 02-20 15:11
PROVIDERS: ATTEND Family Medicine
DX: Z29.8 Encounter for other specified prophylactic measures (principal)

== ENCOUNTER → 2021-05-04 | Outpatient (CLI) | payer MEDICARE, OTHER ==
--- NOTE | 2021-05-04 12:41 | Diagnostic Imaging Report ---
Indication: Cough and weakness PA and lateral chest There are postoperative changes from CABG surgery. Heart size and pulmonary vascularity are normal. Lungs are clear. There are no effusions or pneumothoraces. IMPRESSION: Negative chest Dictated by: Dictated on workstation # [id number]
== END ==
LOC: RAD 12:15
PROVIDERS: ATTEND Nurse Practitioner Family
DX: J16.8 Pneumonia due to other specified infectious organisms (principal)
CPT/HCPCS: 71046

== ENCOUNTER 2021-05-19 15:14 | Outpatient (RCR) | payer MEDICARE, OTHER | END 2021-05-21 | disposition home or self-care (01) | LOC: CR3 15:14 | PROVIDERS: ATTEND Family Medicine | DX: Z29.8 Encounter for other specified prophylactic measures (principal) ==

== ENCOUNTER → 2021-06-21 | Outpatient (RCR) | payer MEDICARE, OTHER | END | disposition home or self-care (01) | LOC: CR3 05-22 15:05 | PROVIDERS: ATTEND Family Medicine | DX: Z29.8 Encounter for other specified prophylactic measures (principal) ==

== ENCOUNTER 2021-08-18 15:00 | Outpatient (RCR) | payer MEDICARE, OTHER | END 2021-08-19 | disposition home or self-care (01) | LOC: CR3 15:00 | PROVIDERS: ATTEND Family Medicine | DX: Z29.8 Encounter for other specified prophylactic measures (principal) ==

== ENCOUNTER 2021-10-18 14:39 | Outpatient (RCR) | payer MEDICARE, OTHER | END 2021-10-19 | disposition home or self-care (01) | LOC: CR3 14:39 | PROVIDERS: ATTEND Family Medicine | DX: Z29.8 Encounter for other specified prophylactic measures (principal) ==

== ENCOUNTER 2021-12-18 15:17 | Outpatient (RCR) | payer MEDICARE, OTHER | END 2021-12-19 | disposition home or self-care (01) | LOC: CR3 15:17 | PROVIDERS: ATTEND Family Medicine | DX: Z29.8 Encounter for other specified prophylactic measures (principal) ==

== ENCOUNTER → 2022-01-19 | Outpatient (RCR) | payer MEDICARE, OTHER | END | disposition home or self-care (01) | LOC: CR3 12-20 16:33 | PROVIDERS: ATTEND Family Medicine | DX: Z29.8 Encounter for other specified prophylactic measures (principal) ==

== ENCOUNTER → 2022-03-21 | Outpatient (RCR) | payer MEDICARE, OTHER | END | disposition home or self-care (01) | LOC: CR3 01-22 06:00 | PROVIDERS: ATTEND Family Medicine | DX: Z29.8 Encounter for other specified prophylactic measures (principal) ==

== ENCOUNTER → 2022-05-21 | Outpatient (RCR) | payer MEDICARE, OTHER ==
[~2022-05-21] MED LIST changes: +CLOP-31 PO; -CLOP75TA69 PO
== END | disposition home or self-care (01) ==
LOC: CR3 03-23 15:10
PROVIDERS: ATTEND Family Medicine
DX: Z29.8 Encounter for other specified prophylactic measures (principal)

== ENCOUNTER 2022-06-18 14:02 | Outpatient (RCR) | payer MEDICARE, OTHER | END 2022-07-19 | disposition home or self-care (01) | LOC: CR3 14:02 | PROVIDERS: ATTEND Family Medicine | DX: Z29.8 Encounter for other specified prophylactic measures (principal) ==

== ENCOUNTER 2022-09-07 11:49 | Emergency (ER) | payer MEDICARE, OTHER ==
[~2022-09-07] VITALS: Ht 175 cm; Wt 83.0 kg
[2022-09-07] MEDS ORDERED: ALTEPLASE 2 MG (CATHFLO) IV ONE ×2 (12:15→14:00)
--- NOTE | 2022-09-07 12:16 | ED General ---
General Chief Complaint: General Problems/Pain Stated Complaint: PICC LINE ISSUES Nursing Triage Note: SENT HERE FROM HOME HEALTH BECAUSE IS RIGHT UPPER ARM PICC LINE WILL NOT FLUSH. Source of Information: Patient Exam Limitations: No Limitations History of Present Illness Date Seen by Provider: September 07, 2022 Time Seen by Provider: 12:00 Initial Comments 76-year-old male presents to the ED with issues with his PICC line. He states that his home health nurse was unable to draw blood from it this morning. He states that his medication is infusing though. His doctor told him to come in since they were unable to draw blood in order to get Cathflo. He denies any pain at line site. He has the PICC line for an infusion of milrinone for heart failure. Allergies and Home Medications Allergies Coded Allergies: codeine (Unverified Allergy, Unknown, 08/08/11) Patient Home Medication List Home Medication List Reviewed: Yes Alprazolam (Alprazolam) 0.5 Mg Tablet, 0.25-5 MG PO DAILY PRN for ANXIETY/INSOMNIA, (Reported) Entered as Reported by: JIM VASQUES on 08/23/19 0735 Aspirin (Aspirin EC) 81 Mg Tablet.dr, 81 MG PO DAILY Prescribed by: RONALDO PADILLA on 08/26/19 0905 Atorvastatin Calcium (Atorvastatin Calcium) 80 Mg Tablet, 80 MG PO HS Prescribed by: RONALDO PADILLA on 08/26/19 0905 Calcium Carbonate (Tums X-Str) 300 Mg Tab.chew, 300 MG PO PRN PRN for INDIGESTION, (Reported) Entered as Reported by: EMELI ROBLEDO on 08/24/19 1220 Docusate Sodium (Stool Softener) 250 Mg Capsule, 250 MG PO DAILY, (Reported) Entered as Reported by: EMELI ROBLEDO on 08/24/19 1220 Doxycycline Hyclate (Doxycycline Hyclate) 100 Mg Tablet, 100 MG PO BID@ Prescribed by: RONALDO PADILLA on 08/26/19 0905 Folic Acid (Folic Acid) 0.4 Mg Tablet, 0.4 MG PO DAILY, (Reported) Entered as Reported by: EMELI ROBLEDO on 08/24/19 1219 Gabapentin (Gabapentin) 400 Mg Capsule, 1,200 MG PO TID PRN for NERVE PAIN, (Reported) Entered as Reported by: EMELI ROBLEDO on 08/24/19 1223 Lisinopril (Lisinopril) 5 Mg Tablet, 2.5 MG PO DAILY Prescribed by: RONALDO PADILLA on 08/26/19 09 Magnesium Oxide (Magnesium) 500 Mg Capsule, 500 MG PO DAILY PRN for CRAMPS, (Reported) Entered as Reported by: EMELI ROBLEDO on 08/24/19 122 Nitroglycerin (Nitroglycerin) 0.4 Mg Tab.subl, 0 MG SL UD PRN for CHEST PAIN (ANGINA) Prescribed by: RONALDO PADILLA on 08/26/19904 Ondansetron HCl (Ondansetron HCl) 4 Mg Tablet, 4 MG PO Q6H PRN for NAUSEA/VOMITING-1ST LINE, (Reported) Entered as Reported by: EMELI ROBLEDO on 08/24/19 121 Oxycodone HCl (Oxycodone HCl) 20 Mg Tablet, 20 MG PO BID, (Reported) Entered as Reported by: EMELI ROBLEDO on 08/24/19 121 Pantoprazole Sodium (Pantoprazole Sodium) 40 Mg Tablet.dr, 40 MG PO DAILY, ( Reported) Entered as Reported by: EMELI ROBLEDO on 08/24/19 121 Polyethylene Glycol 3350 (Miralax) 17 Gm Powd.pack, 17 GM PO DAILY PRN for CONSTIPATION-2ND LINE, (Reported) Entered as Reported by: EMELI ROBLEDO on 08/24/19 122 Sucralfate (Sucralfate) 1 Gm Tablet, 1 GM PO TID, (Reported) Entered as Reported by: EMELI ROBLEDO on 08/24/19 121 Tamsulosin HCl (Flomax) 0.4 Mg Cap, 0.4 MG PO DAILY, (Reported) Entered as Reported by: EMELI ROBLEDO on 08/24/19 1223 Ticagrelor (Brilinta) 90 Mg Tablet, 90 MG PO BID Prescribed by: RONALDO PADILLA on 08/26/19904 Venlafaxine HCl (Venlafaxine HCl ER) 75 Mg Cap.er.24h, 225 MG PO DAILY, (Reported) Entered as Reported by: EMELI ROBLEDO on 08/24/19 121 Review of Systems Review of Systems Constitutional: no symptoms reported Unable to draw blood from PICC line Past Dvcqpvh-Beraoy-Iluntx Hx Patient Social History Tobacco Use?: No Substance use?: No Alcohol Use?: No Past Medical History Surgeries: Yes (SEE BELOW) Angioplasty, Cardiac, Coronary Stent, Orthopedic, Rectal, Tonsillectomy Respiratory: Yes Pneumonia, Sleep Apnea, COPD Currently Using CPAP: Yes Cardiac: Yes (CARDIAC CATHS-STENTS X 8, ANGIOPLASTY X 2) Coronary Artery Disease, High Cholesterol, Hypertension Neurological: Yes Vertigo Reproductive Disorders: No Genitourinary: No Gastrointestinal: Yes Gastroesophageal Reflux, Hemorrhoids, Hiatal Hernia Musculoskeletal: Yes (THORACIC AND LUMBAR SPINE SURGERY; COCCYDYNIA LEVATOR ANI SYNDROME) Chronic Back Pain Endocrine: No HEENT: Yes (S/P T&A) Cancer: No Psychosocial: No Integumentary: No Blood Disorders: No Family Medical History PSH: -CARDIAC CATHS--STENTS X 8, ANGIOPLASTY X 2 -HEMORRHOIDECTOMY -THORACIC AND LUMBAR SPINE SURGERY -TONSILLECTOMY AND ADENOIDECTOMY -EGD 08/20/19 Physical Exam Vital Signs Vital Signs - First Documented 09/07/22 11:57 Temp 36.3 Pulse 83 Resp 16 B/P (MAP) 116/82 (93) Pulse Ox 96 O2 Delivery Room Air Capillary Refill : Less Than 3 Seconds Height, Weight, BMI Height: '" Weight: 165lbs. oz. kg; 27.00 BMI Method: General Appearance: No Apparent Distress, WD/WN Neck: Normal Inspection, Supple Respiratory: Lungs Clear, Normal Breath Sounds, No Accessory Muscle Use, No Respiratory Distress Cardiovascular: Regular Rate, Rhythm Extremity: Normal Inspection, Normal Range of Motion Neurologic/Psychiatric: Alert, Normal Mood/Affect Skin: Normal Color, Warm/Dry Progress/Results/Core Measures Suspected Sepsis SIRS Temperature: Pulse: 83 Respiratory Rate: 16 Blood Pressure 116 /82 Mean: 93 Results/Orders My Orders Orders - AVA LAY APRN Alteplase (Cathflo) Injection (Cathflo (09/07/22 12:15) Alteplase (Cathflo) Injection (Cathflo (09/07/22 14:00) Chest 1 View, Ap/Pa Only (09/07/22 14:03) Water (Sterile) For Injection (Sterile W (09/07/22 14:00) Medications Given in ED Vital Signs/I&O 09/07/22 09/07/22 11:57 14:49 Temp 36.3 36.2 Pulse 83 79 Resp 16 16 B/P (MAP) 116/82 (93) 141/84 Pulse Ox 96 98 O2 Delivery Room Air Room Air Capillary Refill : Less Than 3 Seconds Blood Pressure Mean: 93 Progress Note : Progress Note Patient seen and evaluated, resting comfortably in bed, no acute distress. Patient's PICC line and infusion is managed by [facility]. Nursing staff from [facility] requested [facility] protocol regarding using cathflo on occluded lines. Protocol was reviewed. Patient meets criteria for partial occlusion, the criteria he meets is "lack of brisk blood return on aspiration." Cathflo ordered because patient meets criteria. Nursing staff must be trained to administer cathflo. A nurse from the cancer center was able to come over and give the me dication. One dose was administered, the line still did not aspirate after administration. I called and spoke with RO Cruz at [facility], she is patient's nurse. She recommends administering a second dose and obtaining a chest x-ray to verify placement. A second dose was administered in the other port, it did not aspirate as well. Chest x-ray reviewed, PICC line appears to be in place. I called and spoke with RO Cruz again. She will make a note that patient's line does not aspirate for blood draw. She will let patient's provider know about the issue with the line. She will call patient on Saturday after they determine the plan of care for patient. Patient's line still flushes and medication is able to infuse without issues. Plan of care was discussed with patient. Discharge instructions and return precautions provided. Departure Impression Primary Impression: Occluded PICC line Qualified Codes: T82.898A - Other specified complication of vascular prosthetic devices, implants and grafts, initial encounter Disposition: 01 HOME, SELF-CARE Condition: Stable Departure-Patient Inst. Decision time for Depature: 14:43 Referrals: RONALDO PADILLA MD (PCP/Family) Primary Care Physician Patient Instructions: Central Line Catheter Add. Discharge Instructions: Follow-up with [facility]. I called and spoke with Nancy, your nurse, she will let the doctor know that your PICC line is not drawing blood. Return for any new, concerning, or worsening symptoms. All discharge instructions reviewed with patient and/or family. Voiced understanding. AVA LAY [employer] INSPECTOR September 07, 2022 12:16
[2022-09-07] MEDS ORDERED: WATER (STERILE) FOR INJECTION 10 ML ONE (14:00)
--- NOTE | 2022-09-07 14:24 | Diagnostic Imaging Report ---
INDICATION: PICC line placement. Frontal chest obtained at 2:13 p.m. and compared to 05/04/2021. FINDINGS: There is cardiomegaly and post-sternotomy change with new pacemaker device compared to the prior study. There is no pneumothorax or pleural fluid or focal infiltrate. There is a new right-sided PICC line tip overlying the mid SVC. IMPRESSION: New right-sided PICC line tip overlies mid SVC. Cardiomegaly and post-sternotomy changes with new pacemaker compared to the previous study. No focal infiltrate or pneumothorax or pleural fluid. Dictated by: Dictated on workstation # [id number]
[2022-09-07 14:49] VITALS: BP 141/84
== END 2022-09-07 14:51 | disposition home or self-care (01) ==
LOC: EDUNIT# 11:49 → ER 11:51
DX: T82.594A Other mechanical complication of infusion catheter, initial encounter (principal); I11.0 Hypertensive heart disease with heart failure; I50.9 Heart failure, unspecified; G47.30 Sleep apnea, unspecified; Z95.5 Presence of coronary angioplasty implant and graft; Z99.89 Dependence on other enabling machines and devices; Z79.899 Other long term (current) drug therapy
CPT/HCPCS: 71045

== ENCOUNTER 2022-09-12 11:11 | Outpatient (RCR) | payer MEDICARE, OTHER | END 2022-09-19 | disposition home or self-care (01) | LOC: CR 11:11 | PROVIDERS: ATTEND Internal Medicine Cardiovascular Disease | DX: Z29.8 Encounter for other specified prophylactic measures (principal); I50.43 Acute on chronic combined systolic (congestive) and diastolic (congestive) heart failure | CPT/HCPCS: 93798 ==

== ENCOUNTER 2022-09-21 07:20 | Outpatient (RCR) | payer MEDICARE, OTHER | END 2022-10-19 | disposition home or self-care (01) | LOC: CR 07:20 | PROVIDERS: ATTEND Internal Medicine Cardiovascular Disease | DX: Z29.8 Encounter for other specified prophylactic measures (principal); I50.43 Acute on chronic combined systolic (congestive) and diastolic (congestive) heart failure ==